=== PATIENT | male | born 1955 | race Caucasian/White ===

== ENCOUNTER 2019-09-06 10:17 | Outpatient (CLI) | payer MEDICARE, OTHER, SELFPAY ==
--- NOTE | 2019-09-06 10:35 | CT_ITS ---
WS: [id number] CT LUNG CANCER SCREENING DLP: 96.18 mGy.cm DIvol: 2.58 mGy CLINICAL INFORMATION SCREENING VISIT: Baseline COMPARISON: None available. FINDINGS Diagnostic quality: Satisfactory Comments: None. Lung Nodules: Several small peripheral micronodules in the upper lung ritter bilaterally measure less than 3 mm. Thin linear septation within the proximal LEFT mainstem bronchus. Lungs: Minimal biapical pleural thickening and scarring. Benign granuloma LEFT lower lobe measures 12 mm. Heart: Normal size heart. No pericardial effusion. Other findings: Mild atherosclerosis thoracic aorta. Pulmonary artery size is normal. Small mediastin al and hilar lymph nodes and axillary lymph nodes. No adenopathy. CT/CT lung screening [id number] IMPRESSION: LUNG-RADS: 2-Benign Appearance or Behavior FOLLOW UP: 12 Month: Continue annual screening with LDCT
== END 2019-09-06 10:18 | disposition home or self-care (01) ==
LOC: RAD 10:22
PROVIDERS: PCP Internal Medicine; Visit Provider Internal Medicine
DX: Z12.2 Encounter for screening for malignant neoplasm of respiratory organs (principal); F17.210 Nicotine dependence, cigarettes, uncomplicated; I70.0 Atherosclerosis of aorta
CPT/HCPCS: G0297

== ENCOUNTER → 2021-03-04 12:16 | Outpatient (BNVA) | payer MEDICARE, SELFPAY | PROVIDERS: PCP Internal Medicine; Visit Provider Nurse Practitioner | DX: R06.00 Dyspnea, unspecified (principal) | CPT/HCPCS: 71046 ==

== ENCOUNTER 2021-04-14 12:00 | Emergency (ER) | payer MEDICARE, SELFPAY ==
[2021-04-14 12:21] VITALS: BP 154/101; PULSE 98; RESP 19; TEMP 36.6; O2SAT 95; BMI 27.6
--- NOTE | 2021-04-14 12:28 | W.ED.GENADLT ---
HPI - General Adult General: Chief complaint: Shortness of Breath/Dyspnea Stated complaint: blood clots in lungs on ct scan History of Present Illness: HPI narrative: Patient's sent via provider from [place]. Patient had abnormal chest x-ray from his provider in [place] and that he went and did a CT and it shows possible clots in the lungs patient is asymptomatic of problems and just went to see a provider for routine work-up. Patient had CT done back here in August and appeared to have micronodules in the lungs that time. We will try and obtain CT results from [facility] from today. PFS ED PFSH: Social History Smoking and tobacco status: former smoker Course Vital Signs: Vital signs: Vital Signs Temperature 97.9 F 04/14/21 12:21 Pulse Rate 98 04/14/21 12:21 Respiratory Rate 19 H 04/14/21 12:21 Blood Pressure 154/101 04/14/21 12:21 Pulse Oximetry 95 04/14/21 12:21 MDM - General Adult MDM Narrative: Medical decision making narrative: Brief history and physical exam was performed as part of the triage process. Due to current ED wait time patient will be placed in waiting room until a room becomes available. Explained to patient he/she will be seen in order of severity. Patient is currently safe to wait in the waiting room until we can get them placed. Patient informed that if condition worsens at any time to please let the vest front presser know. CT results obtained from [facility] 1250. Discussed case with Dr. Miner. Patient will be evaluated in the ER for pulmonary embolus right heart strain. Discharge Plan Discharge Prescriptions: No Action albuterol sulfate [Ventolin HFA] 90 mcg/actuation HFA aerosol inhaler 2 puff inhalation Q6H PRN (Reason: shortness of breath or wheezing) Qty: 8.5 RF: 0 prednisone 20 mg tablet 40 mg PO DAILY 5 Days Qty: 10 RF: 0 doxycycline hyclate 100 mg capsule 100 mg PO BID 7 Days Qty: 14 RF: 0 Coding Level of Care Code ED Refrigeration Engineer for Cricket Hussein
--- NOTE | 2021-04-14 12:55 | XR_ITS ---
WS: [id number] Exam: XR chest 1V portable [id number] Date/Time of Exam: 04/14/2021 12:55 PM Reason For Exam: PE Comparison 03/04/2021. Findings: The lungs are clear and fully expanded. Costophrenic angles are sharp. No infiltrates. Bronchovascula r relief appears normal. Cardiac silhouette is unremarkable. Bony elements are intact. XR/XR chest 1V portable [id number] IMPRESSION: Unremarkable chest radiograph.
--- NOTE | 2021-04-14 12:56 | ECG_ITS ---
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 Measurements Intervals [place] Rate: 79 P: 71 [place]: 208 QRS: 200 QRSD: 117 T: 55 QT: 388 QTc: 447 Interpretive Statements SINUS RHYTHM INDETERMINATE AXIS MODERATE INTRAVENTRICULAR CONDUCTION DELAY [110+ ms QRS DURATION] Nonspecific ST changes in the inferior leads. Nonspecific T wave changes in the anterior leads no previous ECG available for comparison Electronically Signed On 04-15-2021 13:56:02 ANESTHESIOLOGY TEACHER by Leticia Tafoya M.D. [id number]
--- NOTE | 2021-04-14 13:07 | USCV_ITS ---
Peewee Singh Age: 66 Gender: M : 1955 Exam Date: 04/14/2021 13:21 Ordering Phys: Trey De La Paz DO Technologist: Jaron Miranda [place] [facility] [place]: PE BP: 145 / 107 HR: 78 Rhythm: Sinus Technical Quality: Adequate MEASUREMENTS (Male / Female) Normal Values 2D ECHO LV Diastolic Diameter PLAX 3.9 cm 4.2 - 5.9 / 3.9 - 5.3 cm LV Systolic Diameter PLAX 2.2 cm IVS Diastolic Thickness 1.1 cm 0.6 - 1.0 / 0.6 - 0.9 cm IVS Systolic Thickness 1.2 cm LVPW Diastolic Thickness 1.2 cm 0.6 - 1.0 / 0.6 - 0.9 cm LVPW Systolic Thickness 1.2 cm LVOT Diameter 2.0 cm LV Ejection Fraction 2D Teich 76.9 % LV Ejection Fraction MOD 2C 70.2 % LV Ejection Fraction 2C AL 71.9 % LA Diameter 3.5 cm LA Width 4.0 cm LA Height 4.5 cm RA Width 3.1 cm RA Height 4.0 cm Aorta at Sinotubular Diameter 3.0 cm M-MODE Aortic Annulus Diameter 4.6 cm LA Ao Ratio MM 0.9 MV E Point Septal Separation 0.8 cm DOPPLER AV Peak Velocity 98.0 cm/s LVOT Peak Velocity 81.0 cm/s AV Area Cont Eq vti 2.7 cm squared AV Area Cont Eq pk 2.6 cm squared MV Area PHT 5.0 cm squared Mitral E to A Ratio 0.6 MV E' Velocity 25.5 cm/s Mitral E to MV E' Ratio 6.0 Mitral E to LV E' Lateral Ratio 5.6 Mitral E to LV E' Septal Ratio 6.5 TR Peak Velocity 280.0 cm/s TR Peak Gradient 31.4 mmHg TV Peak E Velocity 74.0 cm/s Right Atrial Pressure 13.0 mmHg Pulmonary Artery Systolic Pressu 44.4 mmHg FINDINGS Left Ventricle Normal left ventricular cavity size. Normal left ventricular systolic function. No regional wall motion abnormalities. Left ventricular ejection fraction is estimated at 65 %. In the presence of atrial fibrillation diastolic function cannot be assessed accurately. Right Ventricle The right ventricle is normal in size and function. RVSP could not be calculated due to incomplete tricuspid regurgitation velocity profile. Right Atrium The right atrium is normal in size. Left Atrium The left atrium is normal in size. Mitral Valve Structurally normal mitral valve without significant stenosis or prolapse. There is no mitral regurgitation. Aortic Valve Structurally normal aortic valve without significant sclerosis or stenosis. There is no aortic regurgitation. Tricuspid Valve Structurally normal tricuspid valve without significant stenosis or regurgitation. Pulmonic Valve Structurally normal pulmonic valve without significant stenosis. There is no pulmonic regurgitation. Pericardium Normal pericardium without effusion. Aorta Normal ascending aorta dimension. CONCLUSIONS 1-Normal left ventricular cavity size. Normal left ventricular systolic function. No regional wall motion abnormalities. Left ventricular ejection fraction is estimated at 65 %. In the presence of atrial fibrillation diastolic function cannot be assessed accurately. 2-There is no pericardial effusion. 3-No significant valve abnormalities. 4-The right ventricle is normal in size and function. RVSP could not be calculated due to incomplete tricuspid regurgitation velocity profile. 5-Right atrial pressure is around 5 mm of mercury. 6-There are no prior echocardiogram studies to compare. Elias Olivier MD (Electronically Signed) Final Date: 14 April 2021 18:31 S
[2021-04-14 13:43] LABS: ABG PCO2 35.5 mmHg (35-45); ABG PH Result 7.48 (7.35-7.45); Arterial Blood Gas Hematocrit 47.7 % (42-52); Base Excess ABG 3.1 mmol/L (-2.0-2.0); Blood Gas Allen Test Pos; Blood Gas Operator Identificat GD; Blood Gas Sample Site Radial, right; Blood Gas Sample Type Arterial; Carboxyhemoglobin 1.1 %THgb (0.4-20.1); HCO3 ABG 26.4 mmol/L (22-26); HGB O2 Sat 94.3 % (95-100); Methemoglobin 0.7 % (0.4-1.5); Oxygen Device ROOM AIR; PO2 ABG 70.7 mmHg (80.0-100.0); Total Hemoglobin 15.6 g/dL (14-18)
[2021-04-14 13:49] LABS: Basophils % 1.2 %; Eosinophils # 0.1 10^3/uL (0.0-0.8); Hematocrit 63.3 % (42.0-52.0); Hemoglobin 22.8 g/dL (11.7-16.6); Lymphocytes # 1.1 10^3/uL (0.8-4.8); Lymphocytes % 32.5 %; Mean Corpuscular Volume 83.3 fl (80-94); Mean Platelet Volume 8.7 fL (7.4-10.4); Monocytes # 0.2 10^3/uL (0.2-0.9); Monocytes % 4.5 %; Neutrophils # 1.96 10^3/uL (1.8-7.7); Neutrophils % 58.5 %; Nucleated Red Blood Cells % 0 %; Platelet Count 106 10^3/cmm (130-400); Red Cell Distribution Width 16.5 % (12.1-15.1); White Blood Count 3.4 10^3/uL (4.0-10.0)
[2021-04-14 13:53] VITALS: BP 145/107; PULSE 79; RESP 14; O2SAT 95
[2021-04-14 13:55] LABS: Troponin(5th) Baseline 12 ng/L (0-15)
[2021-04-14 13:56] LABS: Alanine Aminotransferase 15 U/L (0-41); Albumin Level 4.6 g/dL (3.5-5.2); Alkaline Phosphatase 113 IU/L (40-130); Anion Gap 18.4 (5-19); Aspartate Amino Transferase 16 U/L (0-40); Blood Urea Nitrogen 7 mg/dL (8-23); Calcium 9.4 mg/dL (8.5-10.5); Carbon Dioxide 25 mmol/L (22-29); Chloride 95 mmol/L (98-107); Globulin 2.7 g/dL (1.3-4.6); Glomerular Filtration Rate 83.9 mL/min (90-130); Glucose 88 mg/dL (65-115); Osmolality Calculated 277 mOsm/kg (285-295); Potassium 3.4 mmol/L (3.5-5.1); Slide Review Slide Review Perform; Sodium 135 mmol/L (136-145); Total Bilirubin 0.6 mg/dL (0.15-1.2); Total Protein 7.3 g/dL (6.6-8.7)
[2021-04-14 14:05] LABS: INR 0.98 (0.8-1.2)
[2021-04-14 14:20] VITALS: BP 145/107; PULSE 79; RESP 14; O2SAT 95
== END 2021-04-14 14:21 | disposition home or self-care (01) ==
PROVIDERS: Nurse Practitioner Family; Emergency Provider Family Medicine
DX: R06.02 Shortness of breath (principal); Z87.891 Personal history of nicotine dependence
CPT/HCPCS: 36600; 71045; 80053; 82805; 84484; 85025; 85610; 93005; 93306; 99283

== ENCOUNTER 2021-10-21 12:37 | Outpatient (CLI) | payer MEDICARE, SELFPAY ==
--- NOTE | 2021-10-21 12:49 | US_ITS ---
WS: [id number] RENAL ULTRASOUND HISTORY: HEMATURIA COMPARISON: None available. TECHNIQUE: 2-D and color Doppler imaging of the kidney submitted. Right kidney: 9.3 cm x 5.6 cm x 3.9 cm. Normal echogenicity with no hydronephrosis or mass. Left kidney: 9.9 cm x 5.7 cm x 4.1 cm. Normal echogenicity with no hydronephrosis or mass. Aorta: Not visualized. Urinary Bladder: Normal distention. Enlarged heterogeneous prostate gland. Prostate measures 4.6 x 4.4 x 4.5 cm. Mild encroachment into t he base of the bladder. US/US renal BI* [id number] IMPRESSION: 1. Normal renal ultrasound. No hydronephrosis or mass. 2. Markedly enlarged prostate gland. 3. Normal bladder distention. No intraluminal mass identified.
== END 2021-10-21 12:38 | disposition home or self-care (01) ==
LOC: RAD 12:38
PROVIDERS: Visit Provider Nurse Practitioner Primary Care
DX: R31.9 Hematuria, unspecified (principal); N40.0 Benign prostatic hyperplasia without lower urinary tract symptoms
CPT/HCPCS: 76770

== ENCOUNTER 2024-06-13 17:46 | Emergency (ER) | payer MEDICARE, SELFPAY ==
[2024-06-13 17:56] VITALS: BP 156/96; PULSE 80; RESP 17; TEMP 36.6; O2SAT 98; BMI 28.8
--- NOTE | 2024-06-13 18:01 | XRR_ITS ---
PROCEDURE INFORMATION: Exam: XR Chest Exam date and time: 06/13/2024 6:48 PM Age: 69 years old Clinical indication: Chest wall pain; Additional info: Cp TECHNIQUE: Imaging protocol: Radiologic exam of the chest. Views: 1 view. COMPARISON: CR XR chest 1V portable [id number] 04/14/2021 1:05 PM FINDINGS: Lungs: Unremarkable. No consolidation. Pleural spaces: Unremarkable. No pleural effusion. No pneumothorax. Heart/Mediastinum: Unremarkable. No cardiomegaly. Bones/joints: Unremarkable. XR/XR chest 1V portable [id number] IMPRESSION: No acute findings.
--- NOTE | 2024-06-13 18:01 | ECG_ITS ---
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 Measurements Intervals [place] Rate: 84 P: 42 [place]: 217 QRS: -78 QRSD: 115 T: 42 QT: 405 QTc: 479 Interpretive Statements SINUS RHYTHM WITH FIRST DEGREE AV BLOCK WITH OCCASIONAL VENTRICULAR PREMATURE COMPLEXES PATTERN CONSISTENT WITH PULMONARY DISEASE LEFT ANTERIOR FASCICULAR BLOCK [QRS AXIS <= -45, QR IN I, RS IN II] INTERPRETATION BASED ON A DEFAULT AGE OF 40 YEARS Compared to ECG 04/14/2021 13:44:59 Ventricular premature complex(es) now present First degree AV block now present.Left anterior fascicular block now present Indeterminate axis no longer present. Intraventricular conduction delay no longer present. ST (T wave) deviation no longer present T-wave abnormality no longer present Electronically Signed On 06-13-2024 21:51:57 CDT by Leticia Tafoya M.D. [id number]
--- NOTE | 2024-06-13 18:56 | W.ED.CHESTPA ---
HPI - Chest Pain General: Chief Complaint: Chest Pain Stated Complaint: chest pain Time Seen by Provider: 06/13/24 18:47 Source: patient Mode of arrival: ambulatory Limitations: no limitations History of Present Illness: Patient is a 69-year-old male with a past medical history of hypertension, hyperlipidemia, and pulmonary embolus who presents to the emergency department complaining of dizziness. He notes the dizziness began today suddenly, he describes it as room spinning and that he essentially cannot walk due to it. Denies a history of vertigo. He states that he was in the waiting room, and had an episode of left-sided severe, sharp chest pain that has since resided. Denies ever having this pain before. Also notes that he has been nauseous all day, but is actively retching at time of exam. States that the pain he had did not radiate anywhere, was just to his left chest. He is not reporting any associated shortness of breath. No peripheral edema or palpitations. Denies any recent head trauma or falls. He is currently on a blood thinner due to the history of pulmonary embolus, denies any history of ND or other ACS. Mildly hypertensive with his vitals at this time, also minimally tachycardic at time of exam. No specific alleviating or exacerbating factors to his chest pain, but does state that his dizziness is worse with standing and ambulating. MD complaint: chest pain Onset (ago): minute(s) Timing of current episode: now resolved Prior episodes: No Onset: during rest Pain location: left chest Pain radiation: none Severity: severe Quality: sharp Relieving factors: nothing Exacerbating factors: nothing Associated symptoms: Reports nausea and vomiting; Deny abdominal pain, dyspnea, fever(s) or palpitations Treatment prior to arrival: none Risk Factors: Coronary artery disease risk factors: smoking history, hyperlipidemia and hypertension Related Data Previous Rx's ?Medication ?Instructions ?Recorded albuterol sulfate 90 mcg/actuation 2 puff inhalation Q6H PRN 02/06/21 aerosol inhaler (Ventolin HFA) shortness of breath or wheezing #8.5 grams doxycycline hyclate 100 mg capsule 100 mg PO BID 7 days #14 caps 03/04/21 prednisone 20 mg tablet 40 mg (2 x 20 mg) PO DAILY 5 days 03/04/21 #10 tabs apixaban 5 mg (74 tabs) tablets in See Rx Instructions PO .COMPLEX 04/14/21 a dose pack (Eliquis DVT-PE Treat #74 ea 30D Start) meclizine 25 mg tablet 25 mg PO BID PRN dizziness #30 tabs 06/13/24 Allergies Allergy/AdvReac Type Severity Reaction Status Date / Time No Known Allergies Allergy Verified 04/14/21 12:26 Review of Systems General: Reports: 10 or more systems reviewed and unremarkable except in HPI and below Const: Denies: fever(s), chills or fatigue Eyes: Denies: change in vision ENMT: Denies: throat pain, ear or mastoid pain or nasal discharge Card: Reports: chest pain; Denies: palpitations, swelling of feet/ankles or lightheadedness Resp: Denies: dyspnea, productive cough or wheezing GI: Reports: nausea and vomiting; Denies: abdominal pain, diarrhea or constipation : Denies: flank pain, difficulty urinating, dysuria or urinary frequency Musc: Denies: neck pain, back pain or joint pain Skin/Breast: Denies: rash Neuro: Reports: difficulty walking and dizziness; Denies: headache(s), numbness in extremities or weakness in extremities PFSH ED PFSH: Social History Smoking and tobacco/nicotine status: former use of tobacco/nicotine Physical Exam Const: COMMON NORMALS: patient oriented x3 and no limitations GENERAL APPEARANCE: cooperative and well developed ORIENTATION/CONSCIOUSNESS: Yes awake, Yes oriented to person, Yes oriented to place and Yes oriented to time OTHER: Actively retching at bedside HENMT: COMMON NORMALS: normocephalic, atraumatic and hearing grossly normal bilaterally HEAD & SCALP: normocephalic and atraumatic Eye: COMMON NORMALS: Equal, round and reactive pupils present, EOMs intact bilaterally and conjunctivae normal CONJUNCTIVA: Yes conjunctivae normal PUPIL: Yes Equal, round and reactive pupils present Neck/C-Spine: COMMON NORMALS: full ROM, supple and no JVD Resp: COMMON NORMALS: normal respiratory effort, No retractions, No use of accessory muscles and clear to auscultation bilaterally AUSCULTATION: clear to auscultation bilaterally Cardio: COMMON NORMALS: no JVD, regular rate, regular rhythm, No clicks present (Cardio), No murmurs present (Cardio) and No rub (Cardio) RATE: regular rate RHYTHM: regular rhythm GI: COMMON NORMALS: Normal to inspection, nondistended, normoactive bowel sounds present, Soft to palpation and non-tender AUSCULTATION: Yes normoactive bowel sounds PALPATION: Yes Soft to palpation RECTAL EXAM: Yes deferred Extremity: COMMON NORMALS: normal to inspection, full ROM, capillary refill normal and no pedal edema Neuro: COMMON NORMALS: patient oriented x3, CN's II-XII intact bilaterally, moves all extremities, no focal motor deficits and no sensory deficits noted SENSORIUM/ORIENTATION: Yes oriented to person, Yes oriented to place and Yes oriented to time Psych: COMMON NORMALS: mental status grossly normal and Normal thought process present THOUGHT PROCESS: Normal thought process present Skin: COMMON NORMALS: no rashes or lesions noted GENERAL SKIN EXAM: no rashes or lesions noted Course Vital Signs: Vital signs: Vital Signs Temperature 97.8 F 06/13/24 17:56 Pulse Rate 71 06/13/24 22:40 Respiratory Rate 17 06/13/24 17:56 Blood Pressure 146/106 06/13/24 22:40 Pulse Oximetry 93 06/13/24 22:40 Oxygen Delivery Me thod Room Air 06/13/24 19:55 MDM - Chest Pain Medical Decision Making Patient presented for dizziness, did have an episode of left-sided chest pain in the waiting room that he wanted evaluated. History of PE on Eliquis. No history of heart attacks. Main complaint was dizziness and was actively retching at bedside on exam. His physical exam was unremarkable, no murmur appreciated and no neurological deficits on exam. Did not report to me history of vertigo. His baseline troponin was normal, repeat troponin did not show any concerning delta. Chest x-ray unremarkable, head CT unremarkable. Rest of his lab work normal, EKG that was reviewed with physician did not show any acute STEMI or other major abnormalities. He was given meclizine here and does note that this made him feel better. Also states he has not been drinking any water so he could be dehydrated. Ultimately I discussed this case here with Dr. Maharaj, who agrees with disposition home and outpatient follow-up. No need for admission at this time. Patient also stating he wants to go home. Vitals have been within normal limits, I do not suspect ACS, I do suspect vertigo as why he was dizzy and nauseous. Ultimately though I do think he needs outpatient cardiac workup with cardiology/primary care, to include echocardiogram and/or stress test. He states he will call his primary care tomorrow to set up this appointment. I did tell him to return if he has any further chest pain or shortness of breath, or any other concerns, he verbalized understanding. Lab Data 06/13/24 19:09 06/13/24 19:09 Radiology Impressions Chest X-Ray 06/13/24 18:01 IMPRESSION: No acute findings. Head CT 06/13/24 19:02 IMPRESSION: No acute findings. Laboratory Results WBC 9.27 10^3/uL (3.29-11.43) 06/13/24 19:09 RBC 5.30 10^6/uL (3.85-5.65) 06/13/24 19:09 Hgb 16.00 g/dL (11.27-16.99) 06/13/24 19:09 Hct 45.4 % (37-53) 06/13/24 19:09 MCV 85.7 fl (82-101) 06/13/24 19:09 MCH 30.2 pg (27-33) 06/13/24 19: MCHC 35.2 g/dL (30-55) 06/13/24 19:09 RDW 13.6 % (12.1-15.1) 06/13/24 19:09 Plt Count 220 10^3/cmm (157-399) 06/13/24 19:09 MPV 9.1 fL (7.4-10.4) 06/13/24 19:09 Neut % (Auto) 73.2 % 06/13/24 19:09 Lymph % (Auto) 18.2 % 06/13/24 19:09 Christian % (Auto) 5.5 % 06/13/24 19:09 Eos % (Auto) 2.0 % 06/13/24 19:09 Baso % (Auto) 0.8 % 06/13/24 19:09 Neut # (Auto) 6.78 10^3/uL (1.8-7.7) 06/13/24 19:09 Lymph # (Auto) 1.7 10^3/uL (0.8-4.8) 06/13/24 19:09 Christian # (Auto) 0.5 10^3/uL (0.2-0.9) 06/13/24 19:09 Eos # (Auto) 0.2 10^3/uL (0.0-0.8) 06/13/24 19:09 Baso # (Auto) 0.1 10^3/uL (0.0-0.1) 06/13/24 19:09 Nucleated RBC % (auto) 0 % 06/13/24 19:09 Nucleated RBCs # 0.0 /100WBC 06/13/24 19:09 D-Dimer 0.33 ug/mLFEU (0-0.59) 06/13/24 19:09 Sodium 138 mmol/L (136-145) 06/13/24 19:09 Potassium 3.4 mmol/L (3.5-5.1) L 06/13/24 19:09 Chloride 98 mmol/L (98-107) 06/13/24 19:09 Carbon Dioxide 22 mmol/L (22-29) 06/13/24 19:09 Anion Gap 21.4 (5-19) H 06/13/24 19:09 BUN 11 mg/dL (8-23) 06/13/24 19:09 Creatinine 1.0 mg/dL (0.7-1.2) 06/13/24 19:09 GFR Calculation Not Reportable 06/13/24 19:09 Glucose 111 mg/dL (65-115) 06/13/24 19:09 Calculated Osmolality 286 mOsm/kg (285-295) 06/13/24 19:09 Calcium 9.6 mg/dL (8.5-10.5) 06/13/24 19:09 Total Bilirubin 0.5 mg/dL (0.15-1.2) 06/13/24 19:09 AST 24 U/L (0-40) 06/13/24 19:09 ALT 19 U/L (0-41) 06/13/24 19:09 Alkaline Phosphatase 89 U/L (40-130) 06/13/24 19:09 Troponin T Baseline 7 ng/L (0-15) 06/13/24 19:09 Troponin T 120 Minute 8.40 ng/L (0-15) 06/13/24 21:01 Delta Troponin T 1.40 ABS# (0-10) 06/13/24 21:01 Total Protein 7.3 g/dL (6.6-8.7) 06/13/24 19:09 Albumin 4.6 g/dL (3.5-5.2) 06/13/24 19:09 Globulin 2.7 g/dL (1.3-4.6) 06/13/24 19:09 All radiology interpretation(s) finalized by discharge Discharge Plan Discharge Patient Disposition: Home Clinical Impression: Benign paroxysmal positional vertigo, Chest pain Condition: Stable Prescriptions: New meclizine 25 mg tablet 25 mg PO BID PRN (Reason: dizziness) Qty: 30 0RF No Action albuterol sulfate [Ventolin HFA] 90 mcg/actuation HFA aerosol inhaler 2 puff inhalation Q6H PRN (Reason: shortness of breath or wheezing) Qty: 8.5 0RF prednisone 20 mg tablet 40 mg PO DAILY 5 Days Qty: 10 0RF doxycycline hyclate 100 mg capsule 100 mg PO BID 7 Days Qty: 14 0RF Eliquis DVT-PE Treat 30D Start 5 mg (74 tabs) tablets,dose pack See Rx Instructions .ROUTE .COMPLEX Qty: 74 0RF Rx Instructions: orally per package directions Discharge Orders: Discharge ED (Routine); Ordered 06/13/24 Ordered By: Tristian Diamond Patient Instructions: Chest Pain (ED), Benign Paroxysmal Positional Vertigo (ED) Activity Restrictions/Additional Instructions: Please follow-up with your regular doctor in the next couple of days for further outpatient cardiac evaluation and for general reevaluation as we discussed. Take the meclizine for your dizziness and drink plenty of water. Please return with any further chest pain, shortness of breath, or any other concerns that you have. Continue taking home medications. Print Language: Bengali Coding Level of Care Code ED Windows Laptop Technician for Cricket Hussein
--- NOTE | 2024-06-13 19:02 | CTR_ITS ---
PROCEDURE INFORMATION: Exam: CT Head Without Contrast Exam date and time: 06/13/2024 7:17 PM Age: 69 years old Clinical indication: Dizziness; Additional info: Dizzy, nausea TECHNIQUE: Imaging protocol: Computed tomography of the head without contrast. Radiation optimization: All CT scans at this facility use at least one of these dose optimization techniques: automated exposure control; mA and/or kV adjustment per patient size (includes targeted exams where dose is matched to clinical indication); or iterative reconstruction. COMPARISON: No relevant prior studies available. RADIATION DOSE METRICS: Total DLP (mGy-cm): 1251.17 FINDINGS: Brain: No hemorrhage. No edema. Moderate diffuse cerebral atrophy and mild sequela of chronic small vessel ischemic disease. No mass effect. Cerebral ventricles: No ventriculomegaly. Normal variant intact cavum septum pellucidum. Paranasal sinuses: Visualized sinuses are unremarkable. No fluid levels. Mastoid air cells: Visualized mastoid air cells are well aerated. Bones: Unremarkable. No acute fracture. Soft tissues: Unremarkable. CT/CT head wo con* [id number] IMPRESSION: No acute findings.
[2024-06-13 19:46] LABS: Basophils # 0.1 10^3/uL (0.0-0.1); Basophils % 0.8 %; Eosinophils # 0.2 10^3/uL (0.0-0.8); Hematocrit 45.4 % (37-53); Lymphocytes # 1.7 10^3/uL (0.8-4.8); Lymphocytes % 18.2 %; Mean Corpuscular HGB Conc 35.2 g/dL (30-55); Mean Corpuscular Hemoglobin 30.2 pg (27-33); Mean Corpuscular Volume 85.7 fl (82-101); Mean Platelet Volume 9.1 fL (7.4-10.4); Monocytes # 0.5 10^3/uL (0.2-0.9); Monocytes % 5.5 %; Neutrophils # 6.78 10^3/uL (1.8-7.7); Neutrophils % 73.2 %; Nucleated Red Blood Cells % 0 %; Platelet Count 220 10^3/cmm (157-399); Red Cell Distribution Width 13.6 % (12.1-15.1); White Blood Count 9.27 10^3/uL (3.29-11.43)
[2024-06-13] MEDS: ondansetron 2 mg/ML SDV 2 mL 4 MG IVP (19:49)
[2024-06-13 19:55] VITALS: BP 165/84; PULSE 74; O2SAT 92
--- NOTE | 2024-06-13 20:00 | ECG_ITS ---
[facility] Test Date: 2024-06-13 Pat Name: Peewee Singh Department: Room: Gender: Male Measurer: : 1955 Requested By: Shane Rowell Order Number: [id number] Haley MD: Leticia Tafoya M.D. Measurements Intervals [place] Rate: 63 P: 30 [place]: 238 QRS: -40 QRSD: 122 T: 27 QT: 443 QTc: 455 Interpretive Statements SINUS RHYTHM WITH FIRST DEGREE AV BLOCK LEFT AXIS DEVIATION [QRS AXIS < -30] MODERATE INTRAVENTRICULAR CONDUCTION DELAY [110+ ms QRS DURATION] Compared to ECG 06/13/2024 18:00:31 Left-axis deviation now present Intraventricular conduction delay now present Ventricular premature complex(es) no longer present Left anterior fascicular block no longer present Electronically Signed On 06-13-2024 22:11:14 CDT by Leticia Tafoya M.D. [id number]
[2024-06-13 20:07] LABS: Troponin(5th) Baseline 7 ng/L (0-15)
[2024-06-13 20:08] LABS: D Dimer 0.33 ug/mLFEU (0-0.59)
[2024-06-13 20:10] LABS: Alanine Aminotransferase 19 U/L (0-41); Albumin Level 4.6 g/dL (3.5-5.2); Alkaline Phosphatase 89 U/L (40-130); Aspartate Amino Transferase 24 U/L (0-40); Blood Urea Nitrogen 11 mg/dL (8-23); Calcium 9.6 mg/dL (8.5-10.5); Carbon Dioxide 22 mmol/L (22-29); Chloride 98 mmol/L (98-107); Creatinine Clr Calc Pharmacy 74.5587; Globulin 2.7 g/dL (1.3-4.6); Glucose 111 mg/dL (65-115); Osmolality Calculated 286 mOsm/kg (285-295); Sodium 138 mmol/L (136-145); Total Bilirubin 0.5 mg/dL (0.15-1.2); Total Protein 7.3 g/dL (6.6-8.7)
[2024-06-13 20:21] LABS: Anion Gap 21.4 (5-19); Potassium 3.4 mmol/L (3.5-5.1)
[2024-06-13] MEDS: meclizine 25 mg tablet 50 MG PO (21:18)
--- NOTE | 2024-06-13 22:39 | PC.NURSE ---
this nurse took over pt care from Ai at 2129.
[2024-06-13 22:40] VITALS: BP 146/106; PULSE 71; O2SAT 93
== END 2024-06-13 22:41 | disposition home or self-care (01) ==
PROVIDERS: Emergency Medicine; Emergency Provider Physician Assistant
DX: H81.10 Benign paroxysmal vertigo, unspecified ear (principal); R07.9 Chest pain, unspecified; Z79.01 Long term (current) use of anticoagulants; Z87.891 Personal history of nicotine dependence
CPT/HCPCS: 36415; 70450; 71045; 80053; 84484; 85025; 85378; 93005; 96374; 99285; J2405; J8597